=== PATIENT | female | born 1970 | race Caucasian/White ===

== ENCOUNTER → 2016-08-21 10:52 | Emergency (ER) | payer OTHER ==
[~2016-08-21 10:52] MED LIST: Cyclobenzaprine TAB* 10 MG PO ONE
[2016-08-21 11:16] VITALS: BP 121/69
[2016-08-21 13:39] LABS: Urine Bacteria Absent (Absent); Urine Bilirubin Negative (Negative); Urine Glucose Negative (Negative); Urine Nitrite Negative (Negative)
--- NOTE | 2016-08-21 13:40 | RAD ---
CLINICAL HISTORY: Right flank pain COMPARISON: None TECHNIQUE: Multiple contiguous axial CT scans were obtained of the abdomen and pelvis, without intravenous contrast enhancement. Coronal and sagittal multiplanar reformations are submitted for review. Oral contrast was not administered. FINDINGS: The study is limited by the lack of intravenous contrast. This limits evaluation of the solid organs and vasculature. LUNG BASES: The lung bases are clear. LIVER: The liver is normal in shape, size, contour, and attenuation. BILE DUCTS: There is no intrahepatic or extrahepatic biliary dilatation. GALLBLADDER: The gallbladder is normal, without pericholecystic inflammatory change. PANCREAS: The pancreas is normal, without mass or ductal dilatation. SPLEEN: Normal in size and appearance. UPPER GI TRACT: Evaluation of the gastrointestinal tract is limited by incomplete gastric distention. There is postsurgical change to the projected tract. SMALL BOWEL AND MESENTERY: The small bowel is normal in contour, course, and caliber. There is no obstruction or dilatation. COLON: The colon is normal in contour, course, caliber. There is no pericolonic inflammatory change. There is a tubular, vermiform, hollow viscus that is blind ending, and originates from the cecum, consistent with a normal appendix. There is no periappendiceal inflammatory change. This is best seen on axial images 113 through 121. ADRENALS: Normal bilaterally. KIDNEYS: There is a 1.1 cm left renal pelvic calculus. There is no appreciable hydronephrosis or right nephrolithiasis. BLADDER: The bladder is smooth in contour. PELVIC ORGANS: The uterus and adnexa are grossly normal for technique. AORTA: The aorta is normal. IVC: Unremarkable LYMPH NODES: There is no lymphadenopathy by size criteria. ABDOMINAL WALL: There is no evidence for abdominal wall hernia. BONES AND SOFT TISSUES: There are bilateral pars defects with grade 1 anterolisthesis of L5 on S1 OTHER: None IMPRESSION: 1. LEFT NEPHROLITHIASIS WITHOUT HYDRONEPHROSIS. 2. NORMAL APPENDIX. 3. 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
--- NOTE | 2016-08-21 16:02 | ED ---
Back Pain - HPI Summary HPI Summary: Patient presents to ED with low back pain worse on the left side but radiates to the right. She notes to numbness and tingling down the left leg without color or temperature changes. She has had an MRI in Feb which showed degenerative changes and herniated disc. Since that time she had improved but numbness, tingling and pain has been intermittent since that time. She denies urinary symptoms, bladder or bowel dysfunction. She denies other symptoms or complaints. Hx of kidney stones but stable and they have never moved. Has taken ibuprofen without relief. - History of Current Complaint Chief Complaint: EDBackInjuryPain Stated Complaint: LOWER BACK PAIN Time Seen by Provider: 08/21/16 11:27 Hx Last Menstrual Period: PERIODS ARE IRREGULAR, LAST PERIOD OCT SHE THINKS. Pain Intensity: 9 - Allergies/Home Medications Allergies/Adverse Reactions: Allergies Allergy/AdvReac Type Severity Reaction Status Date / Time No Known Allergies Allergy Verified 01/17/15 22:06 PMH/Surg Hx/FS Hx/Imm Hx Endocrine/Hematology History: Denies: Hx Diabetes, Hx Systemic Lupus Erythematosus, Hx Thyroid Disease Cardiovascular History: Denies: Hx Congestive Heart Failure, Hx Hypertension GI History: Denies: Hx Ulcer History: Denies: Hx Dialysis, Hx Renal Disease Musculoskeletal History: Denies: Hx Rheumatoid Arthritis - Cancer History Hx Chemotherapy: No - Surgical History Surgery Procedure, Year, and Place: Tubal Ligation, 1995, [facility]. 14 Ear Tube Surgeries as a child Infectious Disease History: Denies: Traveled Outside the [place] in Last 30 Days - Social History Alcohol Use: None Substance Use Type: Reports: None Smoking Status (MU): Former Smoker Have You Smoked in the Last Year: No Physical Exam Vital Signs On Initial Exam: Initial Vitals Temp Pulse Resp BP Pulse Ox 98.1 F 71 20 121/69 99 08/21/16 11:00 08/21/16 11:00 08/21/16 11:00 08/21/16 11:00 08/21/16 11:00 Diagnostics - Vital Signs Vital Signs Temp Pulse Resp BP Pulse Ox 08/21/16 11:00 98.1 F 71 20 121/69 99 - Laboratory Lab Results: Lab Results 08/21/16 Range/Units 13:10 Urine Color Yellow Urine Appearance Cloudy Urine pH 5.0 (5-9) Ur Specific [place] 1.006 L (1.010-1.030) Urine Protein Negative (Negative) Urine Ketones Negative (Negative) Urine Blood 3+ H (Negative) Urine Nitrate Negative (Negative) Urine Bilirubin Negative (Negative) Urine Urobilinogen Negative (Negative) Ur Leukocyte Esterase 2+ H (Negative) Urine WBC (Auto) 1+(6-10/hpf) H (Absent) Urine RBC (Auto) 2+(6-10/hpf) H (Absent) Ur Squamous Epith Cells Present H (Absent) Urine Bacteria Absent (Absent) Urine Glucose Negative (Negative) Lab Statement: Any lab studies that have been ordered have been reviewed, and results considered in the medical decision making process. Discharge - Discharge Plan Condition: Stable Disposition: HOME Prescriptions: Cyclobenzaprine TAB* [Flexeril TAB*] 10 mg PO BID PRN #14 tab PRN Reason: Pain Sulfamethox/Trimethoprim DS* [Bactrim DS 800/160 TAB*] 1 tab PO BID #6 tab MDD 2 predniSONE TAB* [Deltasone TAB*] 50 mg PO DAILY #5 tab MDD 1 Patient Education Materials: Lumbar Radiculopathy (ED), Sacroiliitis (ED), Lower Back Exercises (ED) Referrals: MAKAYLA Mcdonald [Primary Care Provider] - Aristides Dunn MD [Medical Doctor] - Additional Instructions: Follow up with Dr. Dunn I have given you a referral Prednisone 50mg once daily in the morning x 5 days Flexeril twice daily as needed Ibuprofen 600mg three times daily with meals for discomfort. Dx. Lumbar radiculopathy Flexeril: This medication is a muscle relaxant and can help relieve muscle spasms, muscle strain, or pain sensations. Flexeril can cause side effects that may impair your thinking or reactions. Be careful if you drive or do anything that requires you to be awake and alert. Avoid drinking alcohol, which can increase some of the side effects of Flexeril. Return to ED if symptoms worsen or fail to improve, notice worsening swelling, warmth or redness around the joint, develop fever, or pain is uncontrolled with OTC medications. Moist heat to the area for comfort. Warm showers or baths may improve symptoms. It is important to remain mobile as tolerated to prevent stiffening of the joints and delay healing. Follow up with your PCP. If symptoms remain for > 6 weeks, please seek special medical attention from an orthopedic physician.
== END | disposition home or self-care (01) ==
LOC: ED 10:52
DX: M54.5 Low back pain (principal)
CPT/HCPCS: 74176; 81003; 81015; 87086; 99282; A9270-GY

== ENCOUNTER 2016-09-09 13:59 | Emergency (ER) | payer OTHER ==
[2016-09-09 14:11] VITALS: BP 102/64
--- NOTE | 2016-09-09 14:27 | UC ---
Lower Extremity/Ankle HPI - HPI Summary HPI Summary: Pt presents with c/o right ankle pain and swelling. Pt reports she was walking in her yard last night and stepped in a shallow hole and "twisted her ankle". Pt is able to weight bear and iced the ankle last night. Now c/o of bruising, pain with weight bearing and mild swelling, ankle and foot. - History of Current Complaint Chief Complaint: UCLowerExtremity Stated Complaint: RIGHT FOOT INJURY Time Seen by Provider: 09/09/16 14:12 Hx Obtained From: Patient Hx Last Menstrual Period: tubal ?: No Onset/Duration: Sudden Onset, Still Present, Worse Since - onset Severity Initially: Mild Severity Currently: Mild Aggravating Factor(s): Standing, Ambulation Alleviating Factor(s): Rest, Elevation Able to Bear Weight: Yes - Risk Factors Gout Risk Factors: Age Over 40 - Allergies/Home Medications Allergies/Adverse Reactions: Allergies Allergy/AdvReac Type Severity Reaction Status Date / Time No Known Allergies Allergy Verified 09/09/16 14:11 Home Medications: Home Medications Anxeity Med X2 2 tab PO DAILY 09/09/16 [History Confirmed 09/09/16] Omeprazole CAP* [Prilosec CAP* 20 MG] 20 mg PO DAILY 09/09/16 [History Confirmed 09/09/16] Simvastatin [Zocor 5 MG-] 10 mg PO 1700 09/09/16 [History Confirmed 09/09/16] PMH/Surg Hx/FS Hx/Imm Hx Previously Healthy: Yes Psychological History: Anxiety - Surgical History Surgical History: Yes Surgery Procedure, Year, and Place: Tubal Ligation, 1995, [facility]. 14 Ear Tube Surgeries as a child. Gastric Bypass 08/2013 - Family History Known Family History: Positive: Cardiac Disease - Social History Occupation: Employed Full-time Lives: With Family Alcohol Use: None Substance Use Type: None Smoking Status (MU): Former Smoker Have You Smoked in the Last Year: No When Did the Patient Quit Smoking/Using Tobacco: 10 YRS AGO Review of Systems Constitutional: Negative Skin: Bruising - right lateral malleolus Eyes: Negative ENT: Negative Respiratory: Negative Cardiovascular: Negative Gastrointestinal: Negative Genitourinary: Negative Motor: Decreased ROM - right ankle Neurovascular: Negative Musculoskeletal: Arthralgia, Edema - right ankle, Myalgia Neurological: Negative Psychological: Negative All Other Systems Reviewed And Are Negative: Yes Physical Exam Triage Information Reviewed: Yes Appearance: Well-Appearing Vital Signs: Initial Vital Signs Temp 98.0 F 09/09/16 14:09 Pulse 72 09/09/16 14:09 Resp 14 09/09/16 14:09 BP 102/64 09/09/16 14:09 Pulse Ox 99 09/09/16 14:09 Eye Exam: Normal Neck exam: Normal Respiratory Exam: Normal Cardiovascular Exam: Normal Musculoskeletal: Positive: ROM Limited @ - rigth ankle,, Edema @ - right lateral malleolus Neurological Exam: Normal Psychological Exam: Normal Skin Exam: Normal Lower Extremity Course/Dx - Differential Dx/Diagnosis Differential Diagnosis/HQI/PQRI: Fracture (Closed) Provider Diagnoses: right ankle sprain Discharge - Discharge Plan Condition: Stable Disposition: HOME Patient Education Materials: Ankle Sprain (ED) Referrals: Jose L Kuhn MD [Medical Doctor] - MAKAYLA Mcdonald [Primary Care Provider] - If Needed Additional Instructions: Please follow up with your PCP or return to clinic. We have provided a referral to an orthopedic provider as needed.
--- NOTE | 2016-09-09 15:22 | RAD ---
Indication: Right ankle injury. 3 views of the right ankle demonstrates no fracture. No other bone or joint abnormality is identified. Ankle mortise is intact. IMPRESSION: No fracture of the right ankle is noted.
== END 2016-09-09 15:37 | disposition home or self-care (01) ==
LOC: UCCORT 13:59
DX: S93.401A Sprain of unspecified ligament of right ankle, initial encounter (principal); X50.1XXA Overexertion from prolonged static or awkward postures, initial encounter; Y93.89 Activity, other specified; Y92.096 Garden or yard of other non-institutional residence as the place of occurrence of the external cause; F41.9 Anxiety disorder, unspecified; Z87.891 Personal history of nicotine dependence
CPT/HCPCS: 99212; G0463

== ENCOUNTER 2018-03-17 17:01 | Emergency (ER) | payer OTHER ==
[2018-03-17 18:06] VITALS: BP 133/74
--- NOTE | 2018-03-17 19:01 | UC ---
Ear Complaint HPI - HPI Summary HPI Summary: 47 yo female with right > left otalgia x 2 weeks cough and congestion unable to hear out of right ear has appt with Dr. Toussaint 04/14 has had at least 6 sets of tubes each ear no f/c - History of Current Complaint Chief Complaint: UCRespiratory Stated Complaint: R EAR PAIN Time Seen by Provider: 03/17/18 18:39 Hx Obtained From: Patient Hx Last Menstrual Period: 03/06/18 Onset/Duration: Gradual Onset, Lasting Weeks Severity Initially: Mild Severity Currently: Severe Pain Intensity: 9 Pain Scale Used: 0-10 Numeric Associated Signs/Symptoms: Positive: Discharge, URI Symptoms Related History: Prior ENT Surgery - Allergies/Home Medications Allergies/Adverse Reactions: Allergies Allergy/AdvReac Type Severity Reaction Status Date / Time NSAIDS (Non-Steroidal Allergy Unknown AVOIDS DUE Verified 03/17/18 17:54 Anti-Inflamma TO GASTRIC BYPASS SURGERY Home Medications: Home Medications Benzonatate CAP* [Tessalon 100 MG CAP*] 100 mg PO TID PRN 03/17/18 [History Confirmed 03/17/18] Diphenhydra/Phenyleph/Acetamin [Theraflu Expressmax Cold Nt Lq] 10 ml PO PRN 08/26 [History] Otc Ear Drops PRN 03/17/18 [History] PMH/Surg Hx/FS Hx/Imm Hx Previously Healthy: Yes - gastric bypass Endocrine History: Dyslipidemia - Surgical History Surgical History: Yes Surgery Procedure, Year, and Place: Tubal Ligation, 1995, [facility]. 14 Ear Tube Surgeries as a child. Gastric Bypass 08/2013 - Family History Known Family History: Positive: Cardiac Disease, Hypertension - Social History Alcohol Use: None Substance Use Type: None Smoking Status (MU): Former Smoker Have You Smoked in the Last Year: No When Did the Patient Quit Smoking/Using Tobacco: 10 YRS AGO Review of Systems All Other Systems Reviewed And Are Negative: Yes Constitutional: Positive: Negative Skin: Positive: Negative Eyes: Positive: Negative ENT: Positive: Ear Ache, Nasal Discharge, Sinus Congestion, Sinus Pain/ Tenderness Respiratory: Positive: Cough Cardiovascular: Positive: Negative Gastrointestinal: Positive: Negative Genitourinary: Positive: Negative Motor: Positive: Negative Neurovascular: Positive: Negative Musculoskeletal: Positive: Negative Neurological: Positive: Negative Psychological: Positive: Negative Physical Exam Triage Information Reviewed: Yes Appearance: Well-Appearing, No Pain Distress, Well-Nourished Vital Signs: Initial Vital Signs Temp 98.1 F 03/17/18 17:59 Pulse 111 03/17/18 17:59 Resp 18 03/17/18 17:59 BP 133/74 03/17/18 17:59 Pulse Ox 98 03/17/18 17:59 Vital Signs Reviewed: Yes Eyes: Positive: Conjunctiva Clear ENT: Positive: Uvula midline. Negative: Hearing grossly normal, Pharyngeal erythema, Nasal congestion, Nasal drainage, TMs normal - right red and bulging, left scarred and dull, Tonsillar swelling, Tonsillar exudate, Trismus, Muffled voice, Hoarse voice, Sinus tenderness Neck: Positive: Supple, Nontender, No Lymphadenopathy Respiratory: Positive: Lungs clear, Normal breath sounds, No respiratory distress, No accessory muscle use Cardiovascular: Positive: RRR, No Murmur Musculoskeletal: Positive: ROM Intact, No Edema Neurological: Positive: Alert Psychological Exam: Normal Ear Complaint Course/Dx - Differential Dx/Diagnosis Provider Diagnosis: Right otitis media, Left serous otitis media, Viral URI with cough Discharge - Sign-Out/Discharge Documenting (check all that apply): Patient Departure All imaging exams completed and their final reports reviewed: No Studies - Discharge Plan Condition: Stable Disposition: HOME Prescriptions: Amoxicillin PO (*) [Amoxicillin 875 MG (*)] 875 mg PO BID #20 tab Fluconazole 150 MG (NF) [Diflucan 150 mg (NF)] 150 mg PO ONCE #1 tab Fluticasone NASAL SPRAY 50MCG* [Flonase NASAL SPRAY 50MCG*] 2 spray BOTH NARES BID #1 btl HYDROcodone/ACETAMIN 5-325 MG* [[place] 5-325 TAB*] 1 tab PO Q4H PRN #12 tab MDD 6 PRN Reason: Pain Patient Education Materials: Ear Infection (ED) Referrals: MAKAYLA Mcdonald [Primary Care Provider] - - Billing Disposition and Condition Condition: STABLE Disposition: Home
== END 2018-03-17 19:15 | disposition home or self-care (01) ==
LOC: UCCORT 17:01
DX: H66.93 Otitis media, unspecified, bilateral (principal); J06.9 Acute upper respiratory infection, unspecified; R05 Cough; Z88.8 Allergy status to other drugs, medicaments and biological substances; Z87.891 Personal history of nicotine dependence
CPT/HCPCS: 99212; G0463